=== PATIENT | male | born 2000 | race Hispanic/Latino ===

== ENCOUNTER 2023-03-27 11:10 | Emergency (ER) | payer BC, OTHER ==
[~2023-03-27] VITALS: Ht 165.1 cm; Wt 145.3 kg
[2023-03-27 11:11] VITALS: BP 180/90; PULSE 69; RESP 16
[2023-03-27] MEDS ORDERED: ISOP30DR11 OT (12:27)
== END 2023-03-27 12:50 | disposition home or self-care (01) ==
LOC: EDH 11:10
DX: H61.21 Impacted cerumen, right ear (principal); H92.01 Otalgia, right ear
CPT/HCPCS: 99282